=== PATIENT | male | born 1960 | race Caucasian/White ===

== ENCOUNTER 2021-04-26 10:31 | Observation (INO) | payer OTHER ==
[~2021-04-26] VITALS: Ht 172.7 cm; Wt 88.0 kg
--- NOTE | 2021-04-26 10:55 | NUR ---
PT AMBULATED TO ROOM IN NO DISTRESS, DECLINED WC. SKIN PWD.
[2021-04-26] MEDS ORDERED: ASPIRIN325 MG PO (11:19)
[2021-04-26] MEDS ORDERED: METOPROL TAR25 MG PO (11:20)
[2021-04-26] MEDS ORDERED: METFORMIN500 M2 PO (11:20)
[2021-04-26] MEDS ORDERED: OXYCODONE15 MG PO (11:21)
[2021-04-26 12:06] LABS: URINE BILIRUBIN - DIPSTICK NEGATIVE (NEGATIVE); URINE BLOOD DIPSTICK NEGATIVE (NEGATIVE); URINE COLOR YELLOW; URINE GLUCOSE - DIPSTICK >=1000 mg/dL (NEGATIVE); URINE KETONE TRACE mg/dL (NEGATIVE); URINE LEUK ESTERASE NEGATIVE (NEGATIVE); URINE PH 5.5 (4.5-8.0); URINE PROTEIN - DIPSTICK NEGATIVE (NEG-TRACE); URINE SPECIFIC GRAVITY 1.025; URINE UROBILINOGEN - DIPSTICK 0.2 E.U./dL (0.2)
--- NOTE | 2021-04-26 12:07 | NUR ---
PATIENT RESTING IN BED COMFORTABLY. WARM BLANKET DECLINED. VSS. 0/10 PAIN. BED IN LOW POSITION. CALL LIGHT WITHIN REACH.
[2021-04-26 12:14] LABS: URINE NITRITE - DIPSTICK NEGATIVE (Negative)
[2021-04-26 12:14] LABS: HEMATOCRIT 41.5 % (39.0-50.0); HEMOGLOBIN 14.1 g/dl (14.0-18.0); IMMATURE GRANULOCYTES 0.6 % (0.0-5.0); MEAN CELL VOLUME 95.2 fL CALC (80.0-100.0); MEAN CORPUSCULAR HGB 32.3 pG CALC (26.0-32.0); NEUT# 3.71 thou/uL (1.82-7.42); RED BLOOD COUNT 4.36 mill/uL (4.70-6.10); RED CELL DISTRI WIDTH 11.8 % (11.5-15.5)
[2021-04-26 12:18] LABS: PROTHROMBIN TIME 10.6 SECONDS (9.0-12.5)
[2021-04-26 12:26] LABS: ALBUMIN 4.2 g/dL (3.2-5.0); ALKALINE PHOSPHATASE 59 u/l (38-126); ANION GAP 9 (6-22 (CALC)); BILIRUBIN, TOTAL 1.7 mg/dL (0.0-1.4); BUN 15 mg/dL (9-20); BUN/CREATININE RATIO 24 (12-20 (CALC)); CARBON DIOXIDE 32 mmol/l (22-30); CHLORIDE 99 mmol/l (95-108); CREATININE 0.6 mg/dL (0.7-1.3); GFR > 60 ML/MIN (>=60 (CALC)); GFR FOR AFR.AMER. > 60 ML/MIN (>=60 (CALC)); POTASSIUM 4.3 mmol/l (3.5-5.1); SGOT/AST 29 u/l (17-59); SODIUM 136 mmol/l (137-146)
--- NOTE | 2021-04-26 13:00 | NUR ---
PATIENT RESTING IN BED. VSS. NO NEEDS AT THIS TIME.
--- NOTE | 2021-04-26 14:00 | NUR ---
PATIENT RESTING IN BED RECEIVING IV FLUID BOLUS. NO NEEDS AT THIS TIME.
--- NOTE | 2021-04-26 15:02 | NUR ---
PATIENT RESTING IN BED WITH LIGHTS DIMMED, BLANKET APPLIED. VSS. 0/10 PAIN REPORTED. NO NEEDS AT THIS TIME.
[2021-04-26] MEDS ORDERED: OXYCODONE HYDRO PO (15:28)
[2021-04-26 19:00] VITALS: BP 129/71
--- NOTE | 2021-04-26 19:35 | NUR ---
PT IS IN BED WITH LIGHTS OFF AND TV ON. GOLYTELY AT BEDSIDE TABLE AND 50% COMPLETE INTAKE AT THIS TIME. PT REPORTS MULTIPLE STOOL OUTPUT. POC DISCUSSED, PT REPORTS THAT THE DOCTOR TOLD HIM HE WOULD BE GOING DOWN AT 0800 IN THE MORNING, DAY SHIFT REPORTED THAT THEY WERE TOLD 11AM, ATTEMPTS TO CONFIRM WITH HOUSE SUPERVISION TO ASSURE PT TO SCHEDULE TO NO AVAIL, HE REPORTED BEING UNAWARE OF ASSIGNED TIME.
--- NOTE | 2021-04-26 22:10 | NUR ---
PT SLEEPING IN BED WITH LIGHTS AND TV OFF. AWOKE TO MY ENTERING THE ROOM. NU-LYTELY 75% COMPLETED AT THIS TIME. PT REPORTS ONLY CLEAR OUTPUT OF STOOL AT THIS TIME. ADDITIONAL PILLOW PROVIDED, DENIES ALL OTHER NEEDS OF ASSISTANCE. ENCOURAGED TO CALL NEEDS ARISE, CALL LIGHT W/IN REACH.
--- NOTE | 2021-04-27 02:10 | NUR ---
PT CALLED ASKING FOR SOMETHING TO HELP HIM RELAX AND SLEEP. PT MEDICATED ORDERS PROVIDE. IVF REPLENISHED ALSO AT THIS TIME. PT AWAKE WITH LIGHTS OFF AND TV DOWN LOW. NU-LYTELY 80% COMPLETE. PT REPORTS ONLY CLEAR WATERY STOOL OUTPUT AT THIS TIME. ALL FLUIDS HAVE BEEN REMOVED PRIOR TO THIS TIME. PT NPO FOR AM PROCEDURE.
[2021-04-27 04:00] VITALS: BP 128/78
[2021-04-27 05:33] LABS: MEAN CELL VOLUME 94.1 fL CALC (80.0-100.0); MEAN CORPUSCULAR HGB 32.4 pG CALC (26.0-32.0); MEAN CORPUSCULAR HGB CONC 34.5 g/dL CAL (32.0-36.0); RED BLOOD COUNT 3.73 mill/uL (4.70-6.10); RED CELL DISTRI WIDTH 11.8 % (11.5-15.5)
[2021-04-27 05:39] LABS: HEMATOCRIT 35.1 % (39.0-50.0); HEMOGLOBIN 12.1 g/dl (14.0-18.0)
--- NOTE | 2021-04-27 07:05 | NUR ---
REPORT RECEIVED FROM BARBARA ANDERSON
--- NOTE | 2021-04-27 08:10 | NUR ---
PT RESTING IN SEMI FOWLERS POSITION,A&O X3;VS OBTAINED AND ASSESSMENT COMPLETED;PT DENIES ANY CURRENT PAIN OR DISCOMFORTS,PAIN SCALE AND REPORTING EDUCATED;RESPIRATIONS EVEN AND UNLABORED ON RA,CLEAR LUNG SOUNDS;ABDOMEN SOFT ON PALPATION AND ACTIVE IN ALL 4 QUADRANTS;STRONG PEDAL PULSES;SKIN INTACT;#18G TO LAC INFUSING NS @ 75ML/HR,SITE APPEARS HEALTHY;NPO DIET REINFORCED AND PT VERBALIZES UNDERSTANDING;PT PLANNED TO BE TRANSPORTED TO OR AT APPROX 1100 FOR COLONOSCOPY;DENIES ANY ADDITIONAL NEEDS AND IS ENCOURAGED TO CALL FOR ASSISTANCE IF NEEDED;FALL PRECAUTIONS IN PLACE WITH BED IN THE LOWEST POSITION AND CALL LIGHT IN REACH;WILL CONTINUE TO MONITOR
[2021-04-27 08:11] VITALS: BP 130/75
--- NOTE | 2021-04-27 08:35 | NUR ---
AT BEDSIDE DISCUSSING POC.
--- NOTE | 2021-04-27 11:10 | NUR ---
PT RESTING IN SEMI FOWLERS POSITION;RESPIRATIONS EVEN AND UNLABORED ON RA;PT DENIES ANY CURRENT PAIN OR DISCOMFORTS;IV SITE PATENT INFUSING NS WITH EASE;NPO DIET REINFORCED;PT ENCOURAGED TO CALL FOR ASSISTANCE IF NEEDED;CALL LIGHT IN REACH;WILL CONTINUE TO MONITOR
--- NOTE | 2021-04-27 11:16 | NUR ---
PT TRANSPORTED TO OR VIA STRETCHER ACCOMPANIED BY BARBARA ARCEO
[2021-04-27] MEDS ORDERED: PROTONIX40 M2 PO (12:50)
--- NOTE | 2021-04-27 13:10 | NUR ---
PT ARRIVED BACK TO MED/SURG ROOM 270 IN STABLE CONDITION VIA STRETCHER ACCOMPANIED BY BARBARA DENNIS;PT ASSISTED TO BEDSIDE WITH STEADY GAIT;PT A&O X3,ORIENTED TO ROOM AND CALL LIGHT SYSTEM;VS OBTAINED;RESPIRATIONS EVEN AND UNLABORED ON RA;IV SITE REMAINS PATENT;PT EDUCATED ON PLANS TO D/C HOME AND VERBALIZES UNDERSTANDING;WC TO BE PROVIDED FOR D/C HOME;FAMILY TO TRANSPORT PT HOME;CALL LIGHT IN REACH;WILL CONTINUE TO MONITOR
[2021-04-27 13:15] VITALS: BP 173/90
[2021-04-27 13:30] VITALS: BP 160/80
--- NOTE | 2021-04-27 13:47 | NUR ---
ALL DISCHARGE INSTRUCTIONS PROVIDED AT THIS TIME;PT INSTRUCTED TO F/U WITH PCP IN THE NEXT WEEK, CONTINUE ROUTINE HOME MEDICATIONS,RX FOR PROTONIX PROVIDED AND PT EDUCATED ON USE;IV SITE REMOVED WITH CATHETER INTACT;PT DENIES ANY ADDITIONAL NEEDS;WC TO BE PROVIDED FOR D/C HOME;FAMILY TO TRANSPORT PT HOME;WILL CONTINUE TO MONITOR
--- NOTE | 2021-04-27 13:50 | NUR ---
PER [facility]EN[facility] ANRP ITS OK TO D/C PATIENT WITHOUT ALL POST OP VS BEING COMPLETED.
--- NOTE | 2021-04-27 13:52 | NUR ---
Discharge instructions given. Patient verbalizes understanding of same. Discharged in stable condition via Ambulatory to Home with family. All belongings sent with pt. PT AMBULATED DOWN HALLWAY WITH PERSONAL CANE AND A STEADY GAIT.PT UNWILLING TO WAIT UNTIL FAMILY ARRIVES FOR D/C TO LOBBY AND REPORTS "IM FREEZING, IM GOING TO WAIT ON BENCH OUT FRONT CAUSE I HAVE HAD ENOUGH OF THIS." ENCOURAGED TO SAY ON FLOOR BUT REFUSES;ALL BEONGINGS LEFT WITH PT AT THIS TIME.
== END 2021-04-27 13:52 | disposition home or self-care (01) | DRG 379 ==
LOC: ED 10:31 → ED-I 12:23 → ED 14:40 → MS2 14:41
PROVIDERS: Emergency Medicine; Nurse Practitioner; ADMIT Hospitalist; ATTEND Hospitalist
PROC: 0DJD8ZZ Inspection of Lower Intestinal Tract, Via Natural or Artificial Opening Endoscopic (ICD-10-PCS; principal; 2021-04-27)
DX: K62.5 Hemorrhage of anus and rectum (principal); I10 Essential (primary) hypertension; K57.30 Diverticulosis of large intestine without perforation or abscess without bleeding; K64.8 Other hemorrhoids; E83.119 Hemochromatosis, unspecified; G89.29 Other chronic pain; M54.9 Dorsalgia, unspecified; Z79.82 Long term (current) use of aspirin; Z20.822 Contact with and (suspected) exposure to COVID-19
CPT/HCPCS: G0378; J2060; Q9967